=== PATIENT | male | born 1985 | race Asian ===

== ENCOUNTER 2019-04-21 12:03 | Inpatient (IN) | payer SELFPAY ==
[~2019-04-21] VITALS: Ht 167.6 cm; Wt 70.7 kg
[2019-04-21 13:39] LABS: HEMATOCRIT 43.4 % (42.0-52.0); HEMOGLOBIN 14.5 g/dl (13.5-17.5); MEAN CORPUSCULAR HEMOGLOBIN 29.3 pg (27.0-33.0); MEAN CORPUSCULAR HGB CONC 33.4 g/dl (32.0-36.5); MEAN CORPUSCULAR VOLUME 87.7 fl (80.0-96.0); PLATELET COUNT, AUTOMATED 329 10^3/uL (150-450); RED BLOOD COUNT 4.95 10^6/uL (4.30-6.10); WHITE BLOOD COUNT 8.3 10^3/uL (4.0-10.0)
[2019-04-21 13:55] LABS: AMPHETAMINES LEVEL URINE NEGATIVE (NEGATIVE); BARBITURATES URINE NEGATIVE (NEGATIVE); BENZODIAZEPINES URINE NEGATIVE (NEGATIVE); CANNABINOIDS URINE NEGATIVE (NEGATIVE); COCAINE METABOLITE URINE NEGATIVE (NEGATIVE); METHADONE URINE NEGATIVE (NEGATIVE); OPIATES URINE NEGATIVE (NEGATIVE); PHENCYCLIDINE URINE NEGATIVE (NEGATIVE)
[2019-04-21 14:07] LABS: ACETAMINOPHEN LEVEL < 2.0 UG/ML (10.0-30.0); ALBUMIN 3.9 GM/DL (3.2-5.2); ALT/SGPT 37 U/L (12-78); BILIRUBIN,DIRECT < 0.1 MG/DL (0.0-0.2); BILIRUBIN,TOTAL 0.3 MG/DL (0.2-1.0); BLOOD UREA NITROGEN 18 MG/DL (7-18); CALCIUM LEVEL 9.2 MG/DL (8.5-10.1); CARBON DIOXIDE LEVEL 29 MEQ/L (21-32); CHLORIDE LEVEL 110 MEQ/L (98-107); CREATININE FOR GFR 0.88 MG/DL (0.70-1.30); ETHYL ALCOHOL (ETHANOL) < 0.003 % (0.000-0.010); GLOMERULAR FILTRATION RATE > 60.0 (>60); GLUCOSE, FASTING 85 MG/DL (70-100); POTASSIUM SERUM 3.7 MEQ/L (3.5-5.1); SALICYLATE LEVEL < 1.7 MG/DL (5.0-30.0); SODIUM LEVEL 144 MEQ/L (136-145); TOTAL PROTEIN 7.3 GM/DL (6.4-8.2)
--- NOTE | 2019-04-21 14:47 | REP ---
REASON: Loss of consciousness. COMPARISON: None. TECHNIQUE: 4.5 mm contiguous transaxial sections were obtained from the skull base to the cerebral convexities with thin cuts through the posterior fossa without the administration of intravenous contrast. FINDINGS: The ventricles and sulci are consistent with the patient's age. There are no extra-axial fluid collections. There is no mass effect. The deep cerebral white matter is consistent with the patient's age. The orbital and petrous structures , cerebellopontine angles, and posterior fossa are unremarkable. The sella turcica, cavernous, and paracavernous structures are essentially unremarkable. The visualized portions of the paranasal sinuses and mastoid air cells are clear. Images of the skull base show no gross abnormality. IMPRESSION: Essentially unremarkable CT examination of the brain. Electronically Signed by Mj Das DO 04/21/2019 02:51 P
--- NOTE | 2019-04-21 14:59 | REP ---
REASON: Pain after trauma PRIORS: None. There is a fracture involving the base of the 4th metacarpal. Electronically Signed by Mj Das DO 04/21/2019 03:15 P
[2019-04-21] MEDS ORDERED: LORazepam 1 MG TAB PO STA (20:58)
[2019-04-22] MEDS ORDERED: LORazepam 0.5 MG TAB PO STA (17:56)
--- NOTE | 2019-04-22 18:54 | ECGEPIP ---
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
[2019-04-22] MEDS ORDERED: LORazepam 0.5 MG TAB PO ONE (19:15)
[2019-04-23] MEDS ORDERED: traZODone 50 MG TAB PO PRN (12:45)
[2019-04-23] MEDS ORDERED: MOM 30ML SUSPENSION UDC PO PRN (12:45)
[2019-04-23] MEDS ORDERED: MAALOX 30 ML SUSP *UDC PO PRN (12:45)
[2019-04-23] MEDS ORDERED: ACETAMINOPHEN TAB 650MG DOSE (2X325MG) PO PRN (12:45)
[2019-04-23 14:25] VITALS: BP 158/92
[2019-04-24] MEDS: OLANZapine ORAL DISINTEGRATING TAB 5MG PO PRN (02:29)
[2019-04-24 06:57] VITALS: BP 124/69
--- NOTE | 2019-04-24 11:57 | MHHPEPDOC ---
[facility] History & Physical History and Physical DATE OF ADMISSION: Apr 23, 2019 at 12:47 Date of Service: 04/24/2019 Chief Complaint "I don't need a writing center director". History of Present Illness The patient a 33-year-old man whose primary language is Danish presents reporting psychotic symptoms of intrusive thoughts for several weeks. He reports that he has difficulty focusing as he has various intrusive sexual thoughts of voices commanding him to do various things. It appears that he has had admissions to inpatient psychiatry in [place] several months ago where he was started on medication for similar problems. The patient was evasive about questions and declined the use of a writing center director. However, I did need to use Google Translate for several medical terms as he was not able to grasp many of the questions I was asking. Other staff report that at times he is much more lucid and able to answer questions, appearing less confused. He apologized multiple times during the interview stating that he had difficulty concentrating due to the voices and intrusive thoughts. Reports from [place] indicate that he had recently traveled there to visit family, but had punched a wall in one of his disorganized episodes. During the majority of the interview, it's difficult to discuss the majority of the patient's care and he appears evasive about the review of systems other than the report of psychotic symptoms simply saying, "no" to all other symptoms which appeared to limit the extent to understanding the breadth of his psychiatric symptoms. He denies having any pre-travel medicine to [place], such a malaria prophylaxis or other overt causes that could trigger psychotic episodes. Review Of Systems Unable to get a full and comprehensive review of systems due to combination of psychotic thought process and likely mild language barrier. Past Psychiatric History The patient reports after significant pressing the admission but he reports it being due to "being stressed". Reports he was not tried on medication. Denies any psychiatric follow-up or suicide attempts. Allergies Please see below. Family Psychiatric History The patient denies/is unaware any history of mental health history including addictions and suicide. Social History The patient reports growing up in [place]. He appears very evasive about most of his psychosocial information. He reports that he is currently but he that goes back to [place] to visit family. He denies any significant traumatic events or recent stressors, but it appears that he is unable to concentrate during the majority of the interview. Substance Abuse History The patient denies any excessive alcohol use, tobacco or illicit drug use, denies history of substance use treatment. Medical History Patient has no significant past medical history, Per chart review. Mental Status Examination General: Fair Speech: Monotonous with paucity of speech Thought processes: Linear and logical MSK: Smooth and coordinated gait, no signs of tremors or involuntary orofacial m ovements Thought content: Preoccupation with intrusive thoughts Abstract reasoning, and computation: Mildly impaired Description of associations: Mildly loose Description of abnormal or psychotic thoughts: Denies any suicidal or homicidal ideation. Denies any auditory or visual hallucinations. Does not appear to be responding to internal stimuli. Does not appear to be endorsing any bizarre or paranoid ideation. Judgment: fair Insight: fair Orientation: Alert and orientated 3 Cognition: Grossly normal Recent and remote memory: Intact Attention span and concentration: Impaired Fund of knowledge: Adequate Mood: "okay" Affect: Dysphoric with a constricted range Diagnoses Schizophrenia. Assessment and Plan Schizophrenia: Start risperidone 0.25 mg BID, discussed risks, benefits, and potential side effects with patient including but not limited to tardive dyskinesia, tremors, blood sugar problems, and hypercholesterolemia. Utilized easy2map in order to obtain proper terms to maximize informed consent. Patient agreed to this treatment option after consideration of alternatives. Disposition The patient will need admission likely lasting longer than 2 midnights in order to treat his psychosis. Problem List 1. Altered thoughts. Initial Treatment Plan 1. Patient was admitted on a 9.39 legal status. 2. Complete history was obtained. 3. With patients permission, family will be contacted and database will be expanded. 4. Patients medication regimen will be reviewed and changed accordingly. 5. Patient will be provided with protected environment. 6. Patient will be treated with individual, group, and milieu therapies. 7. Patient will receive supportive psych-education. 8. Discharge planning will commence immediately. 9. Outpatient follow-up treatment will be strongly recommended. 10. The initial treatment plan will focus initially on: Estimated Length Of Stay 4 days Time Spent 45 minutes Vital Signs Vital Signs Date Time Temp Pulse Resp B/P (MAP) Pulse Ox O2 Delivery O2 Flow Rate FiO2 04/24/19 06:57 98.0 84 12 124/69 (87) 04/23/19 14:00 97 Room Air Medications No Active Prescriptions or Reported Meds Allergies Coded Allergies: No Known Allergies (Unverified , 04/21/19) VIVIANE WEEKS DO Apr 24, 2019 11:57
[2019-04-24 16:07] VITALS: BP 120/77
--- NOTE | 2019-04-24 17:55 | HPE ---
DATE OF ADMISSION: 04/24/2019 CHIEF COMPLAINT: Hearing voices. HISTORY OF PRESENT ILLNESS: This is a 33-year-old male from [place], arrived in the [place] one week ago, admitted to the inpatient mental health unit for psychosis. The patient became violent and hit his hand against the wall sustaining a right fourth metacarpal fracture seen by x-ray yesterday. Due to suicidal risk with the PATIENCE bandage, orthopedic surgery has been consulted for a soft cast. A hard cast is also a risk for injury to the patient exhibiting self-harm. The patient otherwise denies any pain and on as-needed Tylenol. Describes no discomfort at this time. He has no complaints of numbness, tingling sensation. He is able to move his right hand and all the fingers without much difficulty. Denies any weakness. Currently, pain is 0/10. PAST MEDICAL HISTORY: None. PAST SURGICAL HISTORY: None. ALLERGIES: No known drug allergies. SOCIAL HISTORY: Denies cigarettes, alcohol use. 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 He lives with his mother and father. He arrived from [place] a week ago. He has two older sisters. Denies any recreational drug use. REVIEW OF SYSTEMS: Per history of present illness (HPI). He complains of auditory hallucinations. PHYSICAL EXAMINATION: Temperature 98.4, pulse 100, respiratory rate 17, blood pressure 120/77, 97% on room air. GENERAL: The patient is awake, alert, and oriented times three. He is cooperative and answers questions appropriately. He has some difficulty with some Comoran but he is able to answer questions well. No delayed speech. No jugular venous distention (JVD), thyromegaly or cervical lymphadenopathy. Moist mucous membranes. Lungs are clear to auscultation. No wheezing, rales, or rhonchi. HEART: S1, S2, sinus rhythm. Abdomen is soft, nontender, nondistended. Positive bowel sounds. EXTREMITIES: No clubbing, cyanosis, or pitting edema. Right fourth metacarpophalangeal (MCP) joint has a fracture. The patient has normal radial and ulnar pulses. The patient is able to oppose the thumb to all the fingers without difficulty. Strength is 5/5 times four extremities. SKIN: Warm, dry, well-perfused and pink in color. LABORATORY DATA: 04/21/2019 CBC, metabolic panel, urine toxicology screen have all been reviewed. IMAGING STUDIES: Hand x-ray on 04/21/2019 showed fracture at the base of the fourth metacarpal. CT of the head on 04/21/[address] ASSESSMENT AND PLAN: A 33-year-old with psychosis, admitted to inpatient mental health unit, complained of auditory hallucinations and exhibited self-harm with intentionally hurting his hand against the wall and sustaining a fourth metacarpal fracture of the right hand. IMPRESSION: 1. Right fourth metacarpal fracture. Orthopedic surgery has been consulted for a soft cast. The patient is a suicide risk and at risk for strangulation with his PATIENCE bandage as well as self-harm with a hard cast. Pain control with as-needed Tylenol. Currently, pain is 0/10. 2. Psychosis. Managed by psychiatrist. ELIEZER
[2019-04-24] MEDS ORDERED: risperiDONE 0.25 MG TAB PO ONE (18:00)
--- NOTE | 2019-04-24 18:00 | CR ---
DATE OF CONSULTATION: 04/24/2019 REASON FOR CONSULTATION: Right hand fracture. HISTORY OF PRESENT ILLNESS: He is a 33-year-old schizophrenic right-hand dominant male who presented to the inpatient psychiatric unit at [facility] for an acute schizophrenic psychotic episode. He describes getting upset at some individuals who were talking to him and then punching a chair several times with his right hand. Complaining of soreness. This apparently happened at an outside institution, possibly even in [place], and he presented to the hospital with a cast in place. Because of the cast and the history, I was asked to see him for this injury. He complains of isolated soreness, and he points to the base of the ulnar side of the right hand. No other apparent injury or complaints. PAST MEDICAL HISTORY: Schizophrenia. Past medical history otherwise is apparently benign. MEDICATIONS: None. ALLERGIES: None. PAST SURGICAL HISTORY: None. He has been living in the [facility] apparently for the last 7 years and was in [place] recently. When I examine him, he is a very pleasant-appearing male. Speaks just broken Maori. Today his vital signs show a temperature of 98, blood pressure 124/69, respiratory rate 12, pulse of 84. Right upper extremity examination shows some minor tenderness at the ulnar side of the base dorsally of the right hand. There is minimal swelling noted. He actually can make a full fist, full extension. He can abduct and adduct all his fingers and normal sensation to light touch. There is no palpable tenderness about the wrist. No snuff box tenderness. No other swelling or obvious injuries to his hand or right upper extremity otherwise. Radiographs show a nondisplaced fracture of the base of the right hand 4th metacarpal. IMPRESSION: Fracture right 4th metacarpal. I recommend immobilization with a safe cock-up wrist splint device. The internal medicine doctor decided it was too unsafe for him to have the volar splint that he had previously with an Nader wrap, because they thought the Nader wrap could potentially be used to harm himself, so instead we are going to use a cock-up wrist splint, which gives adequate immobilization to his hand. I recommend that he wear that and followup with us at [facility] when he gets discharged as an outpatient for clinical followup and x-ray check.
[2019-04-25 06:23] VITALS: BP 153/89
[2019-04-25] MEDS ORDERED: INFLUENZA QUADRIVALENT PF VACCINE 0.5ML SYRINGE (90686) IM ONE (09:00)
[2019-04-25] MEDS ORDERED: risperiDONE 0.5 MG TAB PO SCH ×2 (09:00→15:30)
--- NOTE | 2019-04-25 10:58 | MHIPNPDOC ---
[facility] Progress Note Progress Note [facility] Inpatient Progress Note [facility] Rose Select Gender MRN: N/A Date of : MM/DD/YYYY Date of Service: 04/25/2019 History of Present Illness The patient a 33-year-old man whose primary language is Omani presents reporting psychotic symptoms of intrusive thoughts for several weeks. He reports that he has difficulty focusing as he has various intrusive sexual thoughts of voices commanding him to do various things. It appears that he has had admissions to inpatient psychiatry in [facility] several months ago, where he was started on medication for similar problems. The patient was evasive about questions and declined the use of a software applications architect. However, I did need to use Google Translate for several medical terms as he was not able to grasp many of the questions I was asking. Other staff report that at times he is much more lucid and able to answer questions, appearing less confused. He apologized multiple times during the interview stating that he had difficulty concentrating due to the voices and intrusive thoughts. Reports from [place] indicate that he had recently traveled there to visit family, but had punched a wall in one of his disorganized episodes. During the majority of the interview, it's difficult to discuss the majority of the patient's care and he appears evasive about the review of systems other than the report of psychotic symptoms simply saying, "no" to all other symptoms, which appeared to limit the extent to understanding the breadth of his psychiatric symptoms. He denies having any pre-travel medicine to [place], such as malaria prophylaxis or other overt causes that could trigger psychotic episodes. Interval History The patient is met with today. Nursing staff have noticed that he is still significantly paranoid and bizarre, difficult to redirect in most conversations. He still declines the use of a software applications architect. He continues to report intrusive thoughts, but they are less since starting the risperidone. We received inpa tient discharge summary from [place] and after translation it appears the patient had had a psychotic episode and was treated with risperidone and quetiapine. He had an MRI and EEG which appeared to be normal at that time which was in October 2018. The patient reports that he had stopped taking the medication as he no longer had a prescriber when he came back to [place]. The patient still has been unusual and has difficulty socializing with others, being very socially isolative on the unit. He still reports some unusual thought processes and preoccupation with sexual intrusive thoughts. Review Of Systems General: Denies fever or appetite changes Cardiovascular: Denies Chest pain or palpations GI: Denies Nausea, vomiting, or bowel changes Respiratory: Denies shortness of breath or cough Neuro: Denies dizziness, tremors Derm: Denies any rashes or pruritus : Denies any dysuria or sexual dysfunction MSK: Denies any muscle tightness or stiffness HEENT: Denies any vision changes or headaches Heme/Lymph: denies any bruising or bleeding Endo: denies any cold/heat intolerance or water intake changes Ascertained more information about potential oscar. Patient denies any significant elevated mood episodes or any psychiatric symptoms prior to this episode. Psychotherapy None on this visit. Vital Signs Reviewed. Mental Status Examination General: Fair Speech: Monotonous with paucity of speech Thought processes: Linear and logical MSK: Smooth and coordinated gait, no signs of tremors or involuntary orofacial movements Thought content: Preoccupation with intrusive thoughts Abstract reasoning, and computation: Impaired Description of associations: Loose Description of abnormal or psychotic thoughts: Denies any suicidal or homicidal ideation. Denies any auditory or visual hallucinations. Does not appear to be responding to internal stimuli. Judgment: fair Insight: Mildly impaired Orientation: Alert and orientated 3 Cognition: Grossly normal Recent and remote memory: Intact Attention span and concentration: Impaired Fund of knowledge: Adequate Mood: "okay" Affect: Dysphoric with a constricted range Diagnoses Schizophrenia. Assessment and Plan Schizophrenia: Increase risperidone to 0.75 mg QHS. Patient does report some daytime sleepiness. Previously was on 2 mg of risperidone per records. Disposition Patient will need further inpatient admission in order to treat his signi ficantly impairing psychosis where he is generally unable to navigate the majority of his daily living and attending to his needs well enough to be safe. Time Spent 20 minutes [id number]. Vital Signs Vital Signs Date Time Temp Pulse Resp B/P (MAP) Pulse Ox O2 Delivery O2 Flow Rate FiO2 04/25/19 06:23 99.0 101 16 153/89 (110) 04/23/19 14:00 97 Room Air Current Medications Current Medications Medications (Trade) Dose Ordered Sig/Nakia Route PRN Reason Start Time Stop Time Status Last Admin Dose Admin Acetaminophen (Tylenol Tab) 650 mg Q6HP PRN PO HEADACHE or DISCOMFORT 04/23/19 12:45 Al Hydrox/Mg Hydrox/Simethicone (Mylanta) 30 ml Q4HP PRN PO HEARTBURN/INDIGESTION 04/23/19 12:45 Home Med (Med Rec Complete!) ASDIRECTED XX 04/23/19 10:45 04/23/19 10:38 DC Lorazepam (Ativan) 0.5 mg STAT STAT PO 04/22/19 17:56 04/22/19 17:57 DC 04/22/19 18:06 Lorazepam (Ativan) 1 mg STAT STAT PO 04/21/19 20:58 04/21/19 20:59 DC 04/21/19 21:11 Magnesium Hydroxide (Milk Of Magnesia) 30 ml DAILYPRN PRN PO CONSTIPATION 04/23/19 12:45 Olanzapine (ZyPREXA ZYDIS) 5 mg Q4HP PRN PO AGITATION 04/23/19 12:45 04/24/19 02:29 Risperidone (RisperDAL) 0.5 mg DAILY PO 04/25/19 09:00 04/25/19 09:48 Trazodone HCl (Desyrel) 50 mg QHSP PRN PO INSOMNIA 04/23/19 12:45 04/24/19 02:30 Allergies Coded Allergies: No Known Allergies (Unverified , 04/21/19) VIVIANE WEEKS DO Apr 25, 2019 10:58
[2019-04-25] MEDS: OLANZapine ORAL DISINTEGRATING TAB 5MG PO PRN (13:49)
[2019-04-25 16:11] VITALS: BP 120/80
[2019-04-25] MEDS: risperiDONE 0.5 MG TAB PO SCH (21:00)
[2019-04-26 06:23] VITALS: BP 128/74
[2019-04-26] MEDS: OLANZapine ORAL DISINTEGRATING TAB 5MG PO PRN (09:04)
--- NOTE | 2019-04-26 11:45 | MHIPNPDOC ---
[facility] Progress Note Progress Note Salvador Rose Inpatient Progress Note Salvador Rose Select Gender MRN: N/A Date of : MM/DD/YYYY Date of Service: 04/26/2019 History of Present Illness The patient a 33-year-old man whose primary language is Montenegrin presents reporting psychotic symptoms of intrusive thoughts for several weeks. He reports that he has difficulty focusing as he has various intrusive sexual thoughts of voices commanding him to do various things. It appears that he has had admissions to inpatient psychiatry in [facility] several months ago, where he was started on medication for similar problems. The patient was evasive about questions and declined the use of a communication center operator. However, I did need to use Google Translate for several medical terms as he was not able to grasp many of the questions I was asking. Other staff report that at times he is much more lucid and able to answer questions, appearing less confused. He apologized multiple times during the interview stating that he had difficulty concentrating due to the voices and intrusive thoughts. Reports from [place] indicate that he had recently traveled there to visit family, but had punched a wall in one of his disorganized episodes. During the majority of the interview, it's difficult to discuss the majority of the patient's care and he appears evasive about the review of systems other than the report of psychotic symptoms simply saying, "no" to all other symptoms, which appeared to limit the extent to understanding the breadth of his psychiatric symptoms. He denies having any pre-travel medicine to [place], such as malaria prophylaxis or other overt causes that could trigger psychotic episodes. Interval History The patient is met with today. He reports that he is doing "good" on the risperidone however he has declined to take it at times. He still remains preoccupied and hypersexual at times stating that he has difficulty looking at people's faces stating that he wants to look at their chests. He still has difficulty feeling that people are "thinking bad thoughts about him." He still remains bizarre and somewhat agitated at times, reporting that he has slept majority of the day. Staff notes that he still is bizarre and has difficulty attending groups, being socially isolative although he has had no major behavioral problems over the previous evening. Review Of Systems General: Denies fever or appetite changes Cardiovascular: Denies Chest pain or palpations GI: Denies Nausea, vomiting, or bowel changes Respiratory: Denies shortness of breath or cough Neuro: Denies dizziness or tremors, however does report some "wanting to smile," unclear if orofacial. No signs of mental status. Derm: Denies any rashes or pruritus : Denies any dysuria or sexual dysfunction MSK: Denies any muscle tightness or stiffness HEENT: Denies any vision changes or headaches Heme/Lymph: denies any bruising or bleeding Endo: denies any cold/heat intolerance or water intake changes Psychotherapy None on this visit. Vital Signs Reviewed. Mental Status Examination General: Fair Speech: Monotonous with paucity of speech Thought processes: Linear and logical MSK: Smooth and coordinated gait, no signs of tremors or involuntary orofacial movements Thought content: Preoccupation with intrusive thoughts Abstract reasoning, and computation: Mildly impaired Description of associations: Mildly loose Description of abnormal or psychotic thoughts: Denies any suicidal or homicidal ideation. Denies any auditory or visual hallucinations. Does not appear to be responding to internal stimuli. Does not appear to be endorsing any bizarre or paranoid ideation. Judgment: Worsening Insight: Worsening Orientation: Alert and orientated 3 Cognition: Grossly normal Recent and remote memory: Intact Attention span and concentration: Impaired Fund of knowledge: Adequate Mood: "okay" Affect: Dysphoric with a constricted range Diagnoses Schizophrenia. Assessment and Plan Schizophrenia: Increase risperidone to 0.25 mg QHS as patient reports over sedat ion. Disposition Patient will need a longer inpatient admission in order to treat his impairing disability for self-care. Time Spent 15 minutes [id number]. Vital Signs Vital Signs Date Time Temp Pulse Resp B/P (MAP) Pulse Ox O2 Delivery O2 Flow Rate FiO2 04/26/19 09:00 88 122/74 04/26/19 06:23 97.0 16 04/23/19 14:00 97 Room Air Current Medications Current Medications Medications (Trade) Dose Ordered Sig/Nakia Route PRN Reason Start Time Stop Time Status Last Admin Dose Admin Acetaminophen (Tylenol Tab) 650 mg Q6HP PRN PO HEADACHE or DISCOMFORT 04/23/19 12:45 Al Hydrox/Mg Hydrox/Simethicone (Mylanta) 30 ml Q4HP PRN PO HEARTBURN/INDIGESTION 04/23/19 12:45 04/26/19 09:44 Amlodipine Besylate (Norvasc) 2.5 mg BID PO 04/25/19 13:00 04/25/19 13:48 Home Med (Med Rec Complete!) ASDIRECTED XX 04/23/19 10:45 04/23/19 10:38 DC Lorazepam (Ativan) 0.5 mg STAT STAT PO 04/22/19 17:56 04/22/19 17:57 DC 04/22/19 18:06 Lorazepam (Ativan) 1 mg STAT STAT PO 04/21/19 20:58 04/21/19 20:59 DC 04/21/19 21:11 Magnesium Hydroxide (Milk Of Magnesia) 30 ml DAILYPRN PRN PO CONSTIPATION 04/23/19 12:45 Olanzapine (ZyPREXA ZYDIS) 5 mg Q4HP PRN PO AGITATION 04/23/19 12:45 04/26/19 09:04 Risperidone (RisperDAL) 0.5 mg BID PO 04/25/19 15:30 04/25/19 15:40 DC 04/25/19 15:35 Risperidone (RisperDAL) 0.5 mg DAILY PO 04/25/19 09:00 04/25/19 15:24 DC 04/25/19 09:48 Risperidone (RisperDAL) 0.75 mg QHS PO 04/25/19 21:00 Trazodone HCl (Desyrel) 50 mg QHSP PRN PO INSOMNIA 04/23/19 12:45 04/24/19 02:30 Allergies Coded Allergies: No Known Allergies (Unverified , 04/21/19) VIVIANE WEEKS DO Apr 26, 2019 11:45
[2019-04-26 17:46] VITALS: BP 106/60
[2019-04-26] MEDS: risperiDONE 0.5 MG TAB PO SCH (21:00)
[2019-04-27 06:36] VITALS: BP 129/69
[2019-04-27] MEDS: OLANZapine ORAL DISINTEGRATING TAB 5MG PO PRN (08:20)
--- NOTE | 2019-04-27 09:53 | MHIPNPDOC ---
[facility] Progress Note Progress Note Salvador Rose Inpatient Progress Note Perlatiffany Milton Select Gender MRN: N/A Date of : MM/DD/YYYY Date of Service: 04/27/2019 History of Present Illness The patient a 33-year-old man whose primary language is Syrian presents reporting psychotic symptoms of intrusive thoughts for several weeks. He reports that he has difficulty focusing as he has various intrusive sexual thoughts of voices commanding him to do various things. It appears that he has had admissions to inpatient psychiatry in [facility] several months ago, where he was started on medication for similar problems. The patient was evasive about questions and declined the use of a patient resource specialist. However, I did need to use Google Translate for several medical terms as he was not able to grasp many of the questions I was asking. Other staff report that at times he is much more lucid and able to answer questions, appearing less confused. He apologized multiple times during the interview stating that he had difficulty concentrating due to the voices and intrusive thoughts. Reports from [place] indicate that he had recently traveled there to visit family, but had punched a wall in one of his disorganized episodes. During the majority of the interview, it's difficult to discuss the majority of the patient's care and he appears evasive about the review of systems other than the report of psychotic symptoms simply saying, "no" to all other symptoms, which appeared to limit the extent to understanding the breadth of his psychiatric symptoms. He denies having any pre-travel medicine to [place], such as malaria prophylaxis or other overt causes that could trigger psychotic episodes. Interval History The patient is met with today. He reports that he is feeling better on the Haldol and that that had helped him significantly as he has gotten 5, 1 and 15. He reported that he was able sleep better with less anxiety. His chest pain had resolved. His EKG was within normal limits. The patient reported that he felt much less anxious and that the hallucinations and delusions had been resolved better by the Haldol than they had been by the risperidone. He reported that he has stopped taking the risperidone as he felt it was unhelpful. He has had some instances of being agitated by the voices and having difficulty controlling his paranoia, although no violent outbursts. He has not attended any groups. Review Of Systems General: Denies fever or appetite changes Cardiovascular: Denies chest pain or palpitations GI: Denies Nausea, vomiting, or bowel changes Respiratory: Denies shortness of breath or cough Neuro: Denies dizziness or tremors. Denies "wanting to smile" symptoms currently. Derm: Denies any rashes or pruritus : Denies any dysuria or sexual dysfunction MSK: Denies any muscle tightness or stiffness HEENT: Denies any vision changes or headaches Heme/Lymph: Denies any bruising or bleeding Endo: Denies any cold/heat intolerance or water intake changes Psychotherapy None on this visit. Vital Signs Reviewed. Mental Status Examination General: Fair Speech: Monotonous with paucity of speech Thought processes: Linear and logical MSK: Smooth and coordinated gait, no signs of tremors or involuntary orofacial movements Thought content: Preoccupation with intrusive thoughts Abstract reasoning, and computation: Mildly impaired Description of associations: Mildly loose Description of abnormal or psychotic thoughts: Denies any suicidal or homicidal ideation. Denies any auditory or visual hallucinations. Does not appear to be responding to internal stimuli. Does not appear to be endorsing any bizarre or paranoid ideation. Judgment: Improving Insight: Improving Orientation: Alert and orientated 3 Cognition: Grossly normal Recent and remote memory: Intact Attention span and concentration: Impaired Fund of knowledge: Adequate Mood: "okay" Affect: Dysphoric with a constricted range Diagnoses Schizophrenia. Assessment and Plan Schizophrenia: Discontinue risperidone. Start Haldol 5 mg nightly. Discussed risks, benefits and potential side effects. Disposition Patient will need a longer inpatient admission in order to treat his impairing disability for self-care. Time Spent 20 minutes [id number] Vital Signs Vital Signs Date Time Temp Pulse Resp B/P (MAP) Pulse Ox O2 Delivery O2 Flow Rate FiO2 04/27/19 08:19 88 129/80 04/27/19 06:36 97.9 16 04/23/19 14:00 97 Room Air Current Medications Current Medications Medications (Trade) Dose Ordered Sig/Nakia Route PRN Reason Start Time Stop Time Status Last Admin Dose Admin Acetaminophen (Tylenol Tab) 650 mg Q6HP PRN PO HEADACHE or DISCOMFORT 04/23/19 12:45 04/27/19 08:19 Al Hydrox/Mg Hydrox/Simethicone (Mylanta) 30 ml Q4HP PRN PO HEARTBURN/INDIGESTION 04/23/19 12:45 04/26/19 09:44 Amlodipine Besylate (Norvasc) 2.5 mg BID PO 04/25/19 13:00 04/27/19 08:19 Home Med (Med Rec Complete!) ASDIRECTED XX 04/23/19 10:45 04/23/19 10:38 DC Lorazepam (Ativan) 0.5 mg STAT STAT PO 04/22/19 17:56 04/22/19 17:57 DC 04/22/19 18:06 Lorazepam (Ativan) 1 mg STAT STAT PO 04/21/19 20:58 04/21/19 20:59 DC 04/21/19 21:11 Magnesium Hydroxide (Milk Of Magnesia) 30 ml DAILYPRN PRN PO CONSTIPATION 04/23/19 12:45 Olanzapine (ZyPREXA ZYDIS) 5 mg Q4HP PRN PO AGITATION 04/23/19 12:45 04/27/19 08:20 Risperidone (RisperDAL) 0.5 mg BID PO 04/25/19 15:30 04/25/19 15:40 DC 04/25/19 15:35 Risperidone (RisperDAL) 0.5 mg DAILY PO 04/25/19 09:00 04/25/19 15:24 DC 04/25/19 09:48 Risperidone (RisperDAL) 0.75 mg QHS PO 04/25/19 21:00 Trazodone HCl (Desyrel) 50 mg QHSP PRN PO INSOMNIA 04/23/19 12:45 04/24/19 02:30 Allergies Coded Allergies: No Known Allergies (Unverified , 04/21/19) VIVIANE WEEKS DO Apr 27, 2019 09:53
[2019-04-27] MEDS ORDERED: LORazepam 1 MG TAB PO ONE (12:00)
[2019-04-27] MEDS ORDERED: HALOPERIDOL 5 MG TAB PO ONE (12:00)
[2019-04-27] MEDS ORDERED: diphenhydrAMINE 50 MG CAP PO ONE (12:00)
[2019-04-27 16:41] VITALS: BP 106/60
[2019-04-27] MEDS ORDERED: MAALOX 30 ML SUSP *UDC PO PRN (20:00)
[2019-04-27] MEDS ORDERED: ACETAMINOPHEN TAB 650MG DOSE (2X325MG) PO PRN (20:00)
[2019-04-27] MEDS ORDERED: MOM 30ML SUSPENSION UDC PO PRN (20:00)
[2019-04-27] MEDS: HALOPERIDOL 5 MG TAB PO SCH (20:54)
[2019-04-27] MEDS: OLANZapine ORAL DISINTEGRATING TAB 5MG PO SCH (20:55)
[2019-04-28 06:57] VITALS: BP 129/87
--- NOTE | 2019-04-28 06:58 | ECGEPIP ---
[facility] Test Date: 2019-04-27 Pat Name: JAE HENRY Department: Room: [place] [address] Gender: Male [employer] Officer: RONNIE : 1985 Requested By: VIVIANE WEEKS Order Number: [id number] Reading MD: Enid Del Toro Measurements Intervals [place] Rate: 87 P: 63 NV: 137 QRS: 55 QRSD: 89 T: 43 QT: 362 QTc: 436 Interpretive Statements SINUS RHYTHM EARLY REPOLARIZATION LIKELY NOMALIZATION INF T ABN C/W 04/21/19 Electronically Signed on 04-28-2019 6:57:54 EDT by Enid Del Toro
[2019-04-28] MEDS: HALOPERIDOL 5 MG TAB PO SCH ×2 (08:29→22:54)
[2019-04-28] MEDS: OLANZapine ORAL DISINTEGRATING TAB 5MG PO SCH ×2 (08:29→22:54)
[2019-04-28 16:33] VITALS: BP 114/69
[2019-04-29 06:38] VITALS: BP 116/87
[2019-04-29] MEDS: HALOPERIDOL 5 MG TAB PO SCH ×2 (08:28→22:34)
[2019-04-29] MEDS: OLANZapine ORAL DISINTEGRATING TAB 5MG PO SCH ×2 (08:28→22:34)
[2019-04-29 16:39] VITALS: BP 115/65
[2019-04-30 06:43] VITALS: BP 125/74
[2019-04-30] MEDS: HALOPERIDOL 5 MG TAB PO SCH (09:35)
[2019-04-30] MEDS: OLANZapine ORAL DISINTEGRATING TAB 5MG PO SCH ×2 (09:35→21:08)
--- NOTE | 2019-04-30 09:52 | MHIPNPDOC ---
[facility] Progress Note Progress Note Salvador Rose Inpatient Progress Note Salvador Rose Select Gender MRN: N/A Date of : MM/DD/YYYY Date of Service: 04/30/2019 History of Present Illness The patient a 33-year-old man whose primary language is Mosotho presents reporting psychotic symptoms of intrusive thoughts for several weeks. He reports that he has difficulty focusing as he has various intrusive sexual thoughts of voices commanding him to do various things. It appears that he has had admissions to inpatient psychiatry in [facility] several months ago, where he was started on medication for similar problems. The patient was evasive about questions and declined the use of a cold food packer. However, I did need to use Google Translate for several medical terms as he was not able to grasp many of the questions I was asking. Other staff report that at times he is much more lucid and able to answer questions, appearing less confused. He apologized multiple times during the interview stating that he had difficulty concentrating due to the voices and intrusive thoughts. Reports from [place] indicate that he had recently traveled there to visit family, but had punched a wall in one of his disorganized episodes. During the majority of the interview, it's difficult to discuss the majority of the patient's care and he appears evasive about the review of systems other than the report of psychotic symptoms simply saying, "no" to all other symptoms, which appeared to limit the extent to understanding the breadth of his psychiatric symptoms. He denies having any pre-travel medicine to [place], such as malaria prophylaxis or other overt causes that could trigger psychotic episodes. Interval History The patient's met with today. He reports that he's feeling much less anxious and less paranoid. Staff reports that he has become much less paranoid and agitated with the Haldol. He denied any fatigue to myself, but he reported fatigue to some of the nurses on the Haldol, however, he has behaved better, engaged and has actually started going to groups. Reporting that he's less anxious and worries about people's perceptions less likely indicating his paranoia is resolving. The patient has been attending to his needs and is much more active on the unit. He reports that he's interested in going home soon. Review Of Systems General: Denies fever or appetite changes Cardiovascular: Denies Chest pain or palpations GI: Denies Nausea, vomiting, or bowel changes Respiratory: Denies shortness of breath or cough Neuro: Denies any dizziness or tremors. Denies any difficulties with "stuff like wanting to smile." Derm: Denies any rashes or pruritus : Denies any dysuria or sexual dysfunction MSK: Denies any muscle tightness or stiffness HEENT: Denies any vision changes or headaches Heme/Lymph: denies any bruising or bleeding Endo: denies any cold/heat intolerance or water intake changes Psychotherapy None on this visit. Vital Signs Reviewed. Mental Status Examination General: Fair hygiene improved Speech: Less monotonous Thought processes: Linear and logical MSK: Smooth and coordinated gait, no signs of tremors or involuntary orofacial movements Thought content: Less preoccupied Abstract reasoning, and computation: Improved Description of associations: Improved Description of abnormal or psychotic thoughts: Denies any suicidal or homicidal ideation. Denies any auditory or visual hallucinations. Does not appear to be responding to internal stimuli. Does not appear to be endorsing any bizarre or paranoid ideation. Judgment: Improved Insight: Improved Orientation: Alert and orientated 3 Cognition: Grossly normal Recent and remote memory: Intact Attention span and concentration: Improved Fund of knowledge: Adequate Mood: "okay" Affect: Euthymic with a juarez range Diagnoses Schizophrenia. Assessment and Plan Schizophrenia: Increase Haldol to 10 mg BID. Disposition Possible discharge tomorrow if improvement sustained. Time Spent 15 minutes [id number]. Vital Signs Vital Signs Date Time Temp Pulse Resp B/P (MAP) Pulse Ox O2 Delivery O2 Flow Rate FiO2 04/30/19 09:00 115 137/72 04/30/19 06:43 98.5 14 04/29/19 06:38 Room Air Current Medications Current Medications Medications (Trade) Dose Ordered Sig/Nakia Route PRN Reason Start Time Stop Time Status Last Admin Dose Admin Acetaminophen (Tylenol Tab) 650 mg Q6HP PRN PO HEADACHE or DISCOMFORT 04/23/19 12:45 04/27/19 19:52 DC 04/27/19 08:19 Acetaminophen (Tylenol Tab) 650 mg Q6HP PRN PO HEADACHE or DISCOMFORT 04/27/19 20:00 Al Hydrox/Mg Hydrox/Simethicone (Mylanta) 30 ml Q4HP PRN PO HEARTBURN/INDIGESTION 04/23/19 12:45 04/27/19 19:52 DC 04/26/19 09:44 Al Hydrox/Mg Hydrox/Simethicone (Mylanta) 30 ml Q4HP PRN PO HEARTBURN/INDIGESTION 04/27/19 20:00 Amlodipine Besylate (Norvasc) 2.5 mg BID PO 04/25/19 13:00 04/29/19 22:35 Haloperidol (Haldol) 5 mg BID PO 04/27/19 21:00 04/30/19 09:35 Home Med (Med Rec Complete!) ASDIRECTED XX 04/23/19 10:45 04/23/19 10:38 DC Lorazepam (Ativan) 0.5 mg STAT STAT PO 04/22/19 17:56 04/22/19 17:57 DC 04/22/19 18:06 Lorazepam (Ativan) 1 mg STAT STAT PO 04/21/19 20:58 04/21/19 20:59 DC 04/21/19 21:11 Magnesium Hydroxide (Milk Of Magnesia) 30 ml DAILYPRN PRN PO CONSTIPATION 04/23/19 12:45 04/27/19 19:52 DC Magnesium Hydroxide (Milk Of Magnesia) 30 ml DAILYPRN PRN PO CONSTIPATION 04/27/19 20:00 Olanzapine (ZyPREXA ZYDIS) 5 mg BID PO 04/27/19 21:00 04/30/19 09:35 Olanzapine (ZyPREXA ZYDIS) 5 mg Q4HP PRN PO AGITATION 04/23/19 12:45 04/27/19 19:51 DC 04/27/19 08:20 Risperidone (RisperDAL) 0.5 mg BID PO 04/25/19 15:30 04/25/19 15:40 DC 04/25/19 15:35 Risperidone (RisperDAL) 0.5 mg DAILY PO 04/25/19 09:00 04/25/19 15:24 DC 04/25/19 09:48 Risperidone (RisperDAL) 0.75 mg QHS PO 04/25/19 21:00 04/27/19 19:51 DC Trazodone HCl (Desyrel) 50 mg QHSP PRN PO INSOMNIA 04/23/19 12:45 04/27/19 19:51 DC 04/24/19 02:30 Allergies Coded Allergies: No Known Allergies (Unverified , 04/21/19) VIVIANE WEEKS DO Apr 30, 2019 09:52
[2019-04-30 15:30] VITALS: BP 119/64
[2019-04-30] MEDS: HALOPERIDOL 10 MG TAB PO SCH (21:07)
[2019-05-01 06:58] VITALS: BP 138/63
[2019-05-01] MEDS: OLANZapine ORAL DISINTEGRATING TAB 5MG PO SCH (08:41)
[2019-05-01] MEDS: HALOPERIDOL 10 MG TAB PO SCH (08:41)
[2019-05-01 08:42] VITALS: BP 138/63
--- NOTE | 2019-05-01 09:35 | MHDSPDOC ---
[facility] Discharge Summary Discharge Summary DATE OF ADMISSION: Apr 23, 2019 at 12:47 DATE OF DISCHARGE: 05/01/19 Salvador Vo Discharge Salvador Rose Select Gender MRN: N/A Date of : MM/DD/YYYY Date of Service: 05/01/2019 Diagnoses Schizophrenia. History of Present Illness The patient a 33-year-old man whose primary language is Mohawk presents reporting psychotic symptoms of intrusive thoughts for several weeks. He reports that he has difficulty focusing as he has various intrusive sexual thoughts of voices commanding him to do various things. It appears that he has had admissions to inpatient psychiatry in [place] several months ago, where he was started on medication for similar problems. The patient was evasive about questions and declined the use of a kerfer machine operator. However, I did need to use Google Translate for several medical terms as he was not able to grasp many of the questions I was asking. Other staff report that at times he is much more lucid and able to answer questions, appearing less confused. He apologized multiple times during the interview stating that he had difficulty concentrating due to the voices and intrusive thoughts. Reports from [place] indicate that he had recently traveled there to visit family, but had punched a wall in one of his disorganized episodes. During the majority of the interview, it's difficult to discuss the majority of the patient's care and he appears evasive about the review of systems other than the report of psychotic symptoms simply saying, "no" to all other symptoms, which appeared to limit the extent to understanding the breadth of his psychiatric symptoms. He denies having any pre-travel medicine to [place], such as malaria prophylaxis or other overt causes that could trigger psychotic episodes. Consultants Involved Hospitalist/PCP screening Treatment and Progress On The Unit The patient was initially started on risperidone titrated up to 0.75 mg, however, he reportedly did not like this and refused to take it. He was subsequ ently tried on Zyprexa with little results. He reported that Haldol that was given to him during an episode of paranoia was quite helpful. He was started on 5 mg BID and titrated up to 10 mg BID. He reports some mild sedation, but otherwise reported that it helped his anxiety. He initially reported some chest pain, however, his EKG was negative and vanished when the Haldol treated his paranoia and anxiety. He did have some language barrier, however, he was able to overcome it as the psychosis resolved and was able to communicate more effectively with his treatment team and became much less paranoid and preoccupied. The patient requested to leave and at the time of discharge, did not meet involuntary criteria as he had denied any suicidal or homicidal thought s, his auditory hallucinations had vanished and he was able to attend to his needs sufficiently well to not be dangerously impaired by his psychotic illness and declined further voluntary admission and thus was discharged in good bing. Discharge Assessment 33-year-old man with a history of psychotic illness. Records from [facility] indicate that he had a protracted course with a psychotic illness worked up for medically with no signs of an organic cause indicating a likely primary psychotic process. He does well with Haldol. He has no insurance at this time and thus once he is established at [facility], he would do well with an intractable version of Haldol. 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 Mental Status Examination General: Well dressed with good hygiene Speech: Spontaneous and fluid Thought processes: Linear and logical MSK: Smooth and coordinated gait, no signs of tremors or involuntary orofacial movements Thought content: Future orientated Abstract reasoning, and computation: Intact Description of associations: Intact Description of abnormal or psychotic thoughts: Denies any suicidal or homicidal ideation. Denies any auditory or visual hallucinations. Does not appear to be responding to internal stimuli. Does not appear to be endorsing any bizarre or paranoid ideation. Judgment: fair Insight: fair Orientation: Alert and orientated 3 Cognition: Grossly normal Recent and remote memory: Intact Attention span and concentration: Intact Fund of knowledge: Adequate Mood: "okay" Affect: Euthymic with a full range Follow Up The social work team worked during the predischarge meeting in order to evaluate for further issues of lethality address them fully before discharge. They worked on safety planning with the patient's family members in order to ensure that the patient will have a safe and effective discharge. Time Spent The amount of time spent in the coordination of care for this patient was approximately 30 minutes. Vital Signs/I&Os Vital Signs Date Time Temp Pulse Resp B/P (MAP) Pulse Ox O2 Delivery O2 Flow Rate FiO2 05/01/19 08:42 93 138/63 05/01/19 06:58 97.5 14 04/29/19 06:38 Room Air Medications Scheduled Amlodipine Besylate (Amlodipine Besylate) 2.5 Mg Tablet, 2.5 MG PO BID for htn for 7 Days, #14 Haloperidol (Haloperidol) 10 Mg Tablet, 10 MG PO BID for thoughts for 7 Days, #14 Allergies Coded Allergies: No Known Allergies (Unverified , 04/21/19) VIVIANE WEEKS DO May 01, 2019 09:35
[2019-05-01] MEDS ORDERED: AMLO25TA PO (09:43)
[2019-05-01] MEDS ORDERED: HALO10TA20 PO (09:43)
== END 2019-05-01 11:45 | disposition home or self-care (01) | DRG 750 ==
LOC: M ED 12:03 → M ED INP 04-23 12:47 → M PSY 04-23 14:12
PROVIDERS: ADMIT Psychiatry & Neurology Addiction Medicine; ATTEND Psychiatry & Neurology Addiction Medicine
DX: F20.9 Schizophrenia, unspecified (principal); S62.301A Unspecified fracture of second metacarpal bone, left hand, initial encounter for closed fracture; W22.01XA Walked into wall, initial encounter; Y92.230 Patient room in hospital as the place of occurrence of the external cause

== ENCOUNTER 2024-11-24 10:15 | Emergency (ER) | payer SELFPAY ==
[~2024-11-24] VITALS: Ht 170.2 cm; Wt 71.7 kg
[~2024-11-24 10:15] MED LIST: AMLO25TA PO; HALO10TA20 PO
[2024-11-24] MEDS ORDERED: MAGN296S37 PO (11:21)
[2024-11-24] MEDS ORDERED: PROC1AER16 PR (11:21)
[2024-11-24] MEDS: GLYCERIN ADULT SUPP PR ONE (11:54)
[2024-11-24 11:56] VITALS: BP 130/92; TEMP 99.4; O2SAT 99
[2024-11-24 12:05] LABS: HEMATOCRIT 41.8 % (42.0-52.0); HEMOGLOBIN 13.8 g/dl (13.5-17.5); MEAN CORPUSCULAR HEMOGLOBIN 28.5 pg (27.0-33.0); MEAN CORPUSCULAR VOLUME 86.4 fl (80.0-96.0); PLATELET COUNT, AUTOMATED 316 10^3/uL (150-450); RED BLOOD COUNT 4.84 10^6/uL (4.30-6.10); WHITE BLOOD COUNT 6.9 10^3/uL (4.0-10.0)
[2024-11-24 12:27] LABS: ETHYL ALCOHOL (ETHANOL) < 0.003 % (0.000-0.010)
[2024-11-24 12:28] LABS: SALICYLATE LEVEL < 3.0 MG/DL (<30)
[2024-11-24 12:29] LABS: ALKALINE PHOSPHATASE 86 U/L (40-129); ALT/SGPT 24 U/L (7.0-40); AST/SGOT 14 U/L (<34); BILIRUBIN,DIRECT 0.1 MG/DL (<0.4); BILIRUBIN,TOTAL 0.4 MG/DL (0.3-1.2); BLOOD UREA NITROGEN 13 MG/DL (9-23); CALCIUM LEVEL 9.6 MG/DL (8.5-10.1); CARBON DIOXIDE LEVEL 28 MMOL/L (20-31); CHLORIDE LEVEL 104 MMOL/L (98-107); CREATININE FOR GFR 0.81 MG/DL (0.70-1.30); GLOMERULAR FILTRATION RATE > 90.0 (>60); GLUCOSE, FASTING 99 MG/DL (60-100); POTASSIUM SERUM 3.1 MMOL/L (3.5-5.1); SODIUM LEVEL 143 MMOL/L (136-145); TOTAL PROTEIN 7.4 G/DL (5.7-8.2)
[2024-11-24 12:31] LABS: THYROID STIMULATING HORMONE 0.602 uIU/ML (0.55-4.78)
[2024-11-24] MEDS ORDERED: POTASSIUM CHLORIDE 10MEQ SR TABLET PO ONE (12:45)
== END 2024-11-24 13:05 | disposition home or self-care (01) ==
LOC: M ED 10:15
DX: K59.00 Constipation, unspecified (principal); Z79.899 Other long term (current) drug therapy; Z53.9 Procedure and treatment not carried out, unspecified reason